=== PATIENT | female | born 1930 | race Caucasian/White ===

== ENCOUNTER 2020-03-19 05:26 | Inpatient (IN) | payer OTHER ==
[~2020-03-19] VITALS: Ht 165.1 cm; Wt 46.0 kg
--- NOTE | ~2020-03-19 | PROC ---
[address] [address] PROCEDURE REPORT Name: ELIZABETH GALLARDO Room: [address] IN M.R.#: [id number] Admission: 03/19/20 Attend Phys: Agustin Lord MD Discharge: 03/31/20 Date of : 11/15/[birth year] Report #: [id number] THIS REPORT FOR: cc: Gorge Fraga MD, James MD ~ [facility],Medical Records Staff For GI report, please see the Provation report in Perceptive 7 content. By: 1456Medical Records Staff [facility] /JESSE
[2020-03-19 05:28] VITALS: BP 141/67
[2020-03-19] MEDS ORDERED: CHILDREN'S ASPI81 M1 PO (05:35)
[2020-03-19] MEDS ORDERED: TYLENOL325 M1 PO (05:35)
[2020-03-19] MEDS ORDERED: DORYX MPC120 MG PO (05:36)
[2020-03-19] MEDS ORDERED: ELIQUIS5 MG PO (05:36)
[2020-03-19] MEDS ORDERED: FLOMAX0.4 MG PO (05:36)
[2020-03-19] MEDS ORDERED: LASIX 40 MG TAB40 MG PO (05:37)
[2020-03-19] MEDS ORDERED: MIRALAX119 GM PO (05:38)
[2020-03-19] MEDS ORDERED: SENNA PLUS TAB1 EACH PO (05:38)
[2020-03-19] MEDS ORDERED: LIDOCAINE PAIN1 EACH TOP (05:38)
[2020-03-19] MEDS ORDERED: LISINOPRIL20 MG PO (05:38)
[2020-03-19] MEDS ORDERED: PACERONE 200 M200 M1 PO (05:38)
[2020-03-19] MEDS ORDERED: TOPROL XL25 MG PO (05:39)
[2020-03-19] MEDS ORDERED: TRAMADOL 50 MG50 MG PO (05:39)
[2020-03-19 06:23] LABS: ABSOLUTE LYMPHOCYTES 0.6 thou/uL (0.8-5.3); ABSOLUTE MONOCYTES 0.5 thou/uL (0.0-1.2); ABSOLUTE NEUTROPHILS 5.5 thou/uL (1.6-8.1); BASOPHILS 0.3 %; EOSINOPHILS 0.7 %; HEMOGLOBIN 7.8 gm/dL (12.0-15.0); LYMPHOCYTES 9.1 %; MCH 29.7 pg (26.0-34.0); MCHC 32.7 g/dL (28.0-37.0); MCV 90.8 fL (80.0-100.0); MONOCYTES 7.2 %; NUCLEATED RBCS 0 /100WBC; PLATELET COUNT* 507 thou/uL (150-400); POLYS 82.7 %; RBC 2.64 mil/uL (4.20-5.00); RDW-CV 15.2 % (10.5-14.5); WBC 6.6 thou/uL (4.0-11.0)
[2020-03-19 06:37] LABS: INR 1.3; PROTIME 13.8 Seconds (9.20-11.50)
[2020-03-19 06:40] LABS: CALCIUM 8.3 mg/dL (8.5-10.1); CREATININE 0.9 mg/dL (0.6-1.3); POTASSIUM 3.7 mmol/L (3.5-5.1)
[2020-03-19 06:53] LABS: ALBUMIN 1.8 g/dL (3.4-5.0); MAGNESIUM 1.9 mg/dL (1.8-2.4); TOTAL BILIRUBIN 0.6 mg/dL (<0.1-1.0)
[2020-03-19 07:45] LABS: URINE BILIRUBIN NEGATIVE (Negative); URINE BLOOD NEGATIVE (Negative); URINE CLARITY CLEAR; URINE COLOR YELLOW; URINE GLUCOSE-RANDOM NEGATIVE (Negative); URINE KETONES NEGATIVE (Negative); URINE LEUKOCYTES-REFLEX NEGATIVE (Negative); URINE NITRITE-REFLEX NEGATIVE (Negative); URINE PROTEIN NEGATIVE (Negative); URINE SPECIFIC GRAVITY 1.025 (1.005-1.030); URINE UROBILINOGEN 0.2 E.U./dl (0.2-1.0)
--- NOTE | 2020-03-19 11:21 | EKG ---
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 : 1930 Requested By: Joya Harrington Order Number: [id number] MD: Kolby Mobley Measurements Intervals [place] Rate: 77 P: 31 NJ: 182 QRS: -58 QRSD: 158 T: 98 QT: 436 QTc: 494 Interpretive Statements Atrial-sensed ventricular-paced rhythm No further analysis attempted due to paced rhythm No previous ECG available for comparison Electronically Signed On 03-19-2020 11:21:01 DENTAL EQUIPMENT TECHNICIAN by Kolby Mobley [email or web address] <ELECTRONICALLY SIGNED> By: Kolby Mobley MD, [facility] 03/19/20 1121 0537 0537 Kolby Mobley MD, [facility] /EPI
[2020-03-19 12:16] VITALS: BP 131/49
--- NOTE | 2020-03-19 12:20 | NUR ---
PT GIVEN A LUNCH TRAY, THICKENED LIQUIDS.
[2020-03-19 15:54] LABS: CALCIUM 7.7 mg/dL (8.5-10.1); CREATININE 0.8 mg/dL (0.6-1.3); POTASSIUM 3.1 mmol/L (3.5-5.1)
[2020-03-19 17:14] VITALS: BP 185/54
[2020-03-19 18:40] VITALS: BP 176/62
[2020-03-19 19:50] VITALS: BP 169/58
--- NOTE | 2020-03-19 19:55 | NUR ---
PT LAYING QUIETLY IN BED WITH EYES CLOSED. AT BEDSIDE. O2 4L NC. BEAL DRAINING [place] YELLOW URINE. PT EDEMATOUS EXTREMITIES. TELE MONITOR PLACED ON PT. CALL LITE IN EASY REACH, BED ALARM ON FOR SAFETY. DENIES NEEDS AT THIS TIME.
--- NOTE | 2020-03-19 20:28 | NUR ---
I TOOK REPORT ON THE PATIENT AND SHE ARRIVED IN HER ROOM AT 1900. IS AT THE BEDSIDE AND SHE HAS BEEN AT [facility]ARCH FOR 3 WEEKS AND IGNITE FOR 1 WEEK. SHE HAS A BEAL IN PLACE AND ABOUT 3400 OUTPUT TODAY. SHE IS ON 4L NASAL CANNULA. SHE IS HARD OF HEARING. SHE HAS GENERALIZED EDEMA AND NEEDS REPOSITIONED. SHE WAS SETTLED AND IV PUMP WAS RESTARTED.
[2020-03-19 22:21] LABS: CALCIUM 7.7 mg/dL (8.5-10.1); CREATININE 0.7 mg/dL (0.6-1.3)
[2020-03-19 22:23] LABS: POTASSIUM 2.9 mmol/L (3.5-5.1)
[2020-03-19 22:24] LABS: MAGNESIUM 1.6 mg/dL (1.8-2.4); PHOSPHORUS* 2.7 mg/dL (2.5-4.9)
[2020-03-20] VITALS (7 sets, daily range): BP systolic 101–138; BP diastolic 32–68
[2020-03-20 04:49] LABS: ABSOLUTE EOSINOPHILS 0.1 thou/uL (0.0-0.7); ABSOLUTE LYMPHOCYTES 0.8 thou/uL (0.8-5.3); ABSOLUTE MONOCYTES 0.5 thou/uL (0.0-1.2); ABSOLUTE NEUTROPHILS 6.7 thou/uL (1.6-8.1); BASOPHILS 0.4 %; EOSINOPHILS 0.9 %; HEMATOCRIT 24.3 % (37.0-47.0); LYMPHOCYTES 9.9 %; MCHC 32.9 g/dL (28.0-37.0); MCV 91.1 fL (80.0-100.0); MONOCYTES 6.1 %; MPV 7.9 fl. (7.2-11.1); NUCLEATED RBCS 0 /100WBC; PLATELET COUNT* 495 thou/uL (150-400); POLYS 82.7 %; RBC 2.67 mil/uL (4.20-5.00); RDW-CV 15.2 % (10.5-14.5); WBC 8.1 thou/uL (4.0-11.0)
[2020-03-20 05:19] LABS: CALCIUM 7.7 mg/dL (8.5-10.1); CREATININE 0.7 mg/dL (0.6-1.3)
[2020-03-20 05:25] LABS: POTASSIUM 3.9 mmol/L (3.5-5.1)
--- NOTE | 2020-03-20 06:53 | NUR ---
PT DROWSY OVERNIGHT, AROUSING WITH CARES BUT BACK TO SLEEP. MORE AWAKE AND ALERT THIS MORNING, LOOKING AT THE TV, ANSWERING QUESTIONS WITH ONE AND TWO WORD ANSWERS. AO TO SELF AND PLACE. TAKING PILLS CRUSHED OVERNIGHT WITH APPLESAUCE AND HONEY THICK LIQUIDS. R LIMB ALERT D/T MASTECTOMY. LFA IV SL, ABX GIVEN ORDERED, RECEIVED LASIX THIS MORNING. TELE PACED RHYTHM. EDEMA REMAINS TO ARMS AND LEGS 2-3+. O2 4L NC SATS MID 90'S. BEAL DRAINING [place] AM[place] LITE YELLOW URINE OVERNIGHT. FOOT DROP BOOTS INTACT TO BLE. PT TURNED AND REPOSITIONED Q2 HOURS AND PRN FOR SKIN CARE AND COMFORT. BUTTOCK WOUND, TOMMIE CARE GIVEN AND BARRIER CREAM APPLIED-PHOTO IN CHART. STOOL NEEDED FOR OB, NO BM OVERNIGHT. AM LABS. NEURO, CARDIO AND PULM CONSULTS. BED ALARM ON FOR SAFET, CALL LITE IN EASY REACH.
--- NOTE | 2020-03-20 14:36 | EKG ---
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 : 1930 Requested By: Agustin Lord Order Number: [id number] Shira MD: Kolby Mobley Measurements Intervals [place] Rate: 65 P: 40 TN: 178 QRS: -59 QRSD: 169 T: 85 QT: 501 QTc: 521 Interpretive Statements Atrial-sensed ventricular-paced rhythm No further analysis attempted due to paced rhythm Compared to ECG 03/19/2020 05:37:15 No significant changes Electronically Signed On 03-20-2020 14:35:52 STREET LIGHT INSPECTOR by Kolby Mobley [email or web address] <ELECTRONICALLY SIGNED> By: Kolby Mobley MD, [facility] 03/20/20 1435 1030 1030 Kolby Mobley MD, [facility] /EPI
--- NOTE | 2020-03-20 14:57 | 2DMMODE ---
[place] [address] 2 D/M-MODE ECHOCARDIOGRAM Name: ELIZABETH GALLARDO Room: [address] ADM [place] Lm#: [id number] Admission: 03/19/20 Attend Phys: Agustin Lord, Discharge: Date of : [birth year]/15/[birth year] Date of Service: 03/20/20 1457 Report #: [id number] THIS REPORT FOR: cc: Gorge Fraga MD, James MD Blick,Kolby Still MD [facility] ~ APPROVED REPORT Study performed: 03/20/2020 10:14:34 EXAM: Limited 2D Echocardiogram Patient Location: In-Patient Room #: [facility] Status: routine BSA: 1.75 HR: 66 bpm BP: 123/51 mmHg Rhythm: NSR Other Information Study Quality: Good Indications Congestive Heart Failure Volumes Left Atrial Volume (Systole) LA ESV Index: 30.10 mL/m2 Left Ventricle The left ventricle is normal size. There is normal LV segmental wall motion. Mild concentric left ventricular hypertrophy. The left ventricular systolic function is normal. The left ventricular ejection fraction is within the normal range. LVEF is 50-55%. Right Ventricle The right ventricle is normal size. The right ventricular systolic function is normal. Pacemaker lead is present in the right ventricle. Atria The left atrium size is normal. The right atrium size is normal. Aortic Valve Mild [place] [address] 2 D/M-MODE ECHOCARDIOGRAM Name: ELIZABETH GALLARDO Room: [address] IN M.R.#: [id number] Admission: 03/19/20 Attend Phys: Agustin Lord, Discharge: Date of : [birth year]/15/[birth year] Date of Service: 03/20/20 1457 Report #: [id number] Mitral Valve There is mitral annular calcification. The mitral valve is normal in structure. Tricuspid Valve The tricuspid valve is normal in structure. Pulmonic Valve The pulmonary valve is normal in structure. Great Vessels The aortic root is normal in size. IVC is normal in size. Pericardium There is no pericardial effusion. Left pleural effusion. <Conclusion> Mild concentric left ventricular hypertrophy. LVEF is 50-55%. Mild aortic valve sclerosis. Left pleural effusion. <ELECTRONICALLY SIGNED> By: Kolby Mobley MD, FACC 03/20/201456 56 56 Kolby Mobley MD, FACC /INF
--- NOTE | 2020-03-20 15:34 | NUR ---
CM COMPLETED THE INITIAL ASSESSMENT TO DISCUSS D/C PLAN. PT WAS TESTING 2X CM ATTEMPTED TO SPEAK W/HER. PT SPOUSE PROVIDED SOCIAL HX. PT LIVES HOME W/SPOUSE AND WAS ACTIVE AND INDEPENDENT W/CARES PRIOR TO LAST HOSPITALIZATION. [facility] THIS ADMISSION. PT MAY HAVE HOME O2, NEED TO VERIFY THIS PT ISNT SURE IF HE WANTS PT TO RTRN TO SNF, HE BELIEVES SHE MAY NEED MORE INTENSIVE THERAPY. HE IS MORE INTERESTED IN ARU. PT HAS A SUPPORTIVE FAITH COMMUNITY AND FAMILY. PT HAS NO HX W/HH. CM TO CONT TO FOLLOW.
--- NOTE | 2020-03-20 15:34 | NUR ---
WOUND NURSE: PATIENT SEEN TO ADDRESS SKIN LESION ON SACRUM WHICH PRESENTS HEALING STAGE 2 PRESSURE INJURY EVIDENCED BY PINK EPITHELIAL TISSUE TO PERIWOUND AND PARTIALLY EPITHELIALIZED WOUND WITH BED WITH MOIST PINK TISSUE PRESENT. CLEANSED WITH SOAP AND WATER, RINSED WITH WATER, THEN PATTED DRY. APPLIED MARATHON LIQUID SKIN PROTECTANT TO THE WOUND BED AND LET DRY. PATIENT IS NOT TEACHEABE, NEEDS TO BE REPOSITIONED EVERY 2 HOURS TO PREVENT FURTHER BREAKDOWN.
--- NOTE | 2020-03-20 18:20 | NUR ---
PATIENT RESTING IN BED. PATIENT REPOSITIONED DOCUMENTED. PATIENT HAS BEEN SLEEPING MOST OF DAY BUT IS AROUSABLE. PATIENT WAS ABLE TO EAT SMALL AMOUNT OF MEALS WITH ASSISTANCE, NO SIGNS OF ASPIRATION. MEDICATIONS CRUSHED IN APPLESAUCE. PATIENT DOES MOAN AND COMPLAIN OF LEG AND BACK PAIN, TRAMADOL GIVEN X 1. AT BEDSIDE. BED ALARM ON.
[2020-03-20 20:40] LABS: CALCIUM 7.8 mg/dL (8.5-10.1); CREATININE 0.9 mg/dL (0.6-1.3); MAGNESIUM 1.9 mg/dL (1.8-2.4); POTASSIUM 3.7 mmol/L (3.5-5.1)
[2020-03-21] VITALS (7 sets, daily range): BP systolic 121–141; BP diastolic 45–59
[2020-03-21 04:12] LABS: ABSOLUTE EOSINOPHILS 0.1 thou/uL (0.0-0.7); ABSOLUTE LYMPHOCYTES 1.1 thou/uL (0.8-5.3); ABSOLUTE MONOCYTES 0.7 thou/uL (0.0-1.2); ABSOLUTE NEUTROPHILS 7.2 thou/uL (1.6-8.1); BASOPHILS 0.2 %; EOSINOPHILS 1.1 %; HEMATOCRIT 22.1 % (37.0-47.0); HEMOGLOBIN 7.2 gm/dL (12.0-15.0); LYMPHOCYTES 12.4 %; MCH 29.6 pg (26.0-34.0); MCHC 32.6 g/dL (28.0-37.0); MCV 90.6 fL (80.0-100.0); MONOCYTES 7.3 %; MPV 7.5 fl. (7.2-11.1); NUCLEATED RBCS 0 /100WBC; PLATELET COUNT* 484 thou/uL (150-400); RBC 2.44 mil/uL (4.20-5.00); RDW-CV 15.2 % (10.5-14.5); WBC 9.1 thou/uL (4.0-11.0)
[2020-03-21 04:53] LABS: ALBUMIN 2.1 g/dL (3.4-5.0); CALCIUM 7.9 mg/dL (8.5-10.1); POTASSIUM 3.8 mmol/L (3.5-5.1); TOTAL BILIRUBIN 0.8 mg/dL (<0.1-1.0); TOTAL PROTEIN 5.3 g/dL (6.4-8.2)
--- NOTE | 2020-03-21 05:23 | NUR ---
PT SLEPT OFF AND ON OVERNIGHT.MOANS OCCASIONALLY AND ABLE TO VERBALIZE WHAT HURTS, PO PAIN MED GIVEN AND PT REPOSITIONED FOR COMFORT. BEAL DRAINING LITE YELLOW URINE WITHOUT DIFFICULTY. O2 3L NC. TELE MONITOR VPACED RHYTHM. AM LABS. TAKING MEDS CRUSHED IN PUDDING WITHOUT DIFFICULTY. HONEY THICK LIQUIDS. R LIMB ALERT. LFA SL IV, ALBUMIN AND IV ABX GIVEN ORDERED. MRSA NASAL SWAB SENT TO LAB. EDEMA TO EXTREMITIES. PT TURNED AND REPOSITIONED Q2 HOURS AND PRN FOR SKIN CARE AND COMFORT. CALL LITE IN EASY REACH,BED ALARM ON FOR SAFETY. NO CHANGE IN MENTAL STATUS THIS SHIFT, AO TO SELF AND SITUATION. FULL CODE.
--- NOTE | 2020-03-21 16:44 | NUR ---
PT REMAINED ALERT AND TIMES DURING SHIFT. PT AROUSABLE TO VOICE. AT BEDSIDE AND ASKING QUESTIONS FREQUENTLY. PT GOT UP TO CHAIR BUT STATE STARTED TO FEEL FAINT AND WANTED BACK TO BED. FLAVIA LIFTED BACK TO BED. Q2 TURNS COMPLETED. HOURLY ROUNDING COMPLETED. HEART MONITORED.
[2020-03-22 04:00] VITALS: BP 130/52
[2020-03-22 08:00] VITALS: BP 150/54
--- NOTE | 2020-03-22 08:17 | NUR ---
PATIENT HAS BEEN VERY RESTLESS AT TIMES AND SLEPT OFF AND ON DURING THE NIGHT. VSS ON 3L 02 VIA NASAL CANNULA. MEDICATIONS CRUSHED AND GIVEN ORDERED AND CHARTED. PATIENT VERY CONFUSED MOST OF THE TIME. BEAL TO DEPENDENT DRAINAGE WITH YELLOW URINE OUTPUT. IV N LEFT FOREARM-SL. PATIENT HAS REMAINED BEDREST DURING THE NIGHT. PATIENT IS V-PACED ON ACADEMIC AFFAIRS SPECIALIST. FALL PRECAUTIONS IN PLACE AND HOURLY ROUNDS MADE. WILL CONTINUE WITH PLAN OF CARE AND NURSING TO MONITOR.
[2020-03-22 09:46] LABS: ABSOLUTE EOSINOPHILS 0.1 thou/uL (0.0-0.7); ABSOLUTE LYMPHOCYTES 1.3 thou/uL (0.8-5.3); ABSOLUTE MONOCYTES 0.7 thou/uL (0.0-1.2); ABSOLUTE NEUTROPHILS 8.3 thou/uL (1.6-8.1); BASOPHILS 0.3 %; EOSINOPHILS 0.7 %; HEMATOCRIT 25.9 % (37.0-47.0); HEMOGLOBIN 8.4 gm/dL (12.0-15.0); LYMPHOCYTES 12.5 %; MCH 29.8 pg (26.0-34.0); MCHC 32.6 g/dL (28.0-37.0); MCV 91.4 fL (80.0-100.0); MPV 7.7 fl. (7.2-11.1); NUCLEATED RBCS 0 /100WBC; PLATELET COUNT* 541 thou/uL (150-400); POLYS 79.5 %; RBC 2.83 mil/uL (4.20-5.00); RDW-CV 15.4 % (10.5-14.5); WBC 10.4 thou/uL (4.0-11.0)
[2020-03-22 12:05] VITALS: BP 108/57
[2020-03-22 16:27] VITALS: BP 143/46
--- NOTE | 2020-03-22 19:06 | CON ---
[address] [address] CONSULTATION Name: ELIZABETH GALLARDO Room: [address] IN M.R.#: [id number] Admission: 03/19/20 Attend Phys: Agustin Lord MD Discharge: Date of : 11/15/[birth year] Report #: [id number] THIS REPORT FOR: cc: Gorge Fraga MD, James MD ~ Chato Martinez MD DATE OF SERVICE: 03/20/2020 CONSULT REQUESTED BY: Agustin Lord MD INDICATION FOR CONSULTATION: Acute hypoxemic respiratory failure/mediastinal mass. HISTORY OF PRESENT ILLNESS: This is an 89 years old female with past medical history is as mentioned below. The patient was recently discharged from another facility and in fact subsequently was at a long-term care facility as well after having COVID-19 infection. The patient does have a previous history of pacemaker placement and has previously been followed by Dr. Mobley. She has had atrial arrhythmias and she is on Eliquis long-term. At this time, the patient is admitted here with worsening shortness of breath. There is also worsening swelling of lower extremities and the patient is becoming more and more lethargic. She did not report any significant cough or sputum production. The patient currently is on honey thick liquids. Since admission, the patient has had a CTA chest performed, which does show a mediastinal mass on the right side, which could possibly be an extension from the neck. There are also fairly significant bilateral pleural effusions consistent with fluid overload and there are basilar infiltrates suspicious of aspiration. In addition, the patient had a CT head performed, which does appear to be consistent with a stroke with infarction in the posterior MCA territory and can also be a tiny petechial hemorrhage and some dry rash. Since admission, the patient has been on Lasix. She in fact appears to be diuresing well with Lasix. The patient is very lethargic and is therefore not able to provide a detailed history. PAST MEDICAL HISTORY: Recent recovery from COVID-19 infection, coronary artery disease with congestive heart failure, reported to have had systolic congestive heart failure with cardiomyopathy in the past. The new echo just performed now shows a low normal left ventricular ejection fraction of around 55%. The patient does, however, clinically still appear to be in congestive heart failure. Also, history of atrial arrhythmias, on anticoagulation custodial with Eliquis, also has been on amiodarone. It is [place] [address] CONSULTATION Name: ELIZABETH GALLARDO Room: [address]#: [id number] Admission: 03/19/20 Attend Phys: Agustin Lord MD Discharge: Date of : [birth year]/15[birth year] Report #: [id number] fibrillation; however, details of her arrhythmia is not available to me at this time. Throat surgery, details not available. Right-sided mastectomy. Possible history of dementia. SOCIAL HISTORY: There is no known history of smoking, ethanol abuse, or drug abuse. [facility]. HOME MEDICATIONS: List in [facility] also reviewed, also see discussed above. FAMILY HISTORY: No pertinent family history. PHYSICAL EXAMINATION: GENERAL: The patient was very lethargic. I was able to arouse her. She did answer simple commands, but not orientation questions. VITAL SIGNS: She has nasal cannula in place at 4 liters, she is saturating at 96%, has a pulse of 65 and a blood pressure of 130/48, respiratory rate is 16. She had a temperature of 37.1. HEENT: Head is normocephalic and atraumatic. Pupils are equal and reactive. There is no throat erythema. Her mucous membranes are moist. NECK: Does not show raised JVP, asymmetry, mass or lymph nodes. CHEST: Symmetrical expansion on inspection and palpation. On auscultation, breath sounds are markedly decreased at bilateral lung bases. HEART: Regular. There is no murmur. ABDOMEN: Soft and nontender. EXTREMITIES: Lower extremities do show 1+ edema bilaterally, but there is some wrinkling present, which is consistent with a recent reduction in edema. SKIN: Dry and intact. NEUROLOGICAL: She does move all extremities. She was not able to cooperate with a detailed neurological exam. The patient's CTA chest/head and chest x-ray are reviewed, see further discussion regarding them as above. LABORATORY DATA: The patient's lab work in [facility] also reviewed. Nasal swab for MRSA is pending. ASSESSMENT AND PLAN: 1. Mediastinal mass. This is seen in the right side of the mediastinum. It is causing some tracheal deviation. It is likely that this is an extension from the neck. 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 The left lobe of the thyroid may be too high to be visualized or [address] [address] CONSULTATION Name: ELIZABETH GALLARDO Room: [address] IN M.R.#: [id number] Admission: 03/19/20 Attend Phys: Agustin Lord MD Discharge: Date of : 11/15/[birth year] Report #: [id number] could have been previously surgically removed. At this time, I suggest that we go ahead and obtain a neck soft tissue ultrasound. If there are no obvious findings on this ultrasound to act otherwise, then I would favor stabilizing the patient and addressing other issues first and then later on if we are able to achieve a euvolemic state and a few days later, we will consider obtaining a CT neck and chest with IV contrast again to assess further. 2. Congestive heart failure/fluid overload/pleural effusion/protein-calorie malnutrition. I agree with continuing diuresis. I added potassium scheduled to avoid a drop in potassium. Recommend watching electrolytes and adjusting accordingly down the line. Cutting back on the dose of Lasix. Adding Aldactone and taking her off potassium can be a later consideration. I do agree with giving her albumin today. I suggest considering giving her more albumin tomorrow. 3. Pulmonary infiltrates/aspiration. It does appear to me that there are at least some basilar infiltrates secondary to aspiration. The patient despite honey-thick liquid diet, is likely having ongoing aspiration. I recommend only feeding her if she is fully awake and is able to fully sit up. I would also recommend obtaining a speech consult. If the patient is fully awake and able to sit up, then may consider also obtaining a video swallow to assess further. Meanwhile, she is on Zosyn. I agree with continuing Zosyn. There is an order for nasal swab for MRSA on the record already. I requested the patient's RN to proceed with sending this as well. 4. Stroke. A CT head is consistent with a stroke. I would defer management to the Neurology service. 5. Consideration for thoracentesis/anticoagulation. She has fairly large pleural effusion, otherwise I would have recommended a thoracentesis; however, considering that she is on Eliquis, I favor holding off unless the patient does not continue to respond to diuretics. So far, she is responding to diuretics and I would recommend continuing the same with albumin as well as above. 6. Recent COVID-19 infection. 7. Past medical history of atrial arrhythmias, possibly atrial fibrillation, noted to be on anticoagulation/status post-pacemaker placement. 8. History of amiodarone therapy. 9. History of mastectomy. Thanks for this consultation. <ELECTRONICALLY SIGNED> By: Chato Martinez MD 03/22/20 [id number] Martinez MD /nt
[2020-03-22 20:30] VITALS: BP 114/46
[2020-03-23 04:00] VITALS: BP 152/52
--- NOTE | 2020-03-23 06:43 | NUR ---
ASSUMED CARE OF PATIENT AT 1930. PATIENT MOANING BUT DOES NOT RESPOND WHEN ASKED WHAT IS WRONG OR IF PATIENT IS IN PAIN. ADMINISTERED PRN TRAMADOL. PATIENT CALM/SLEEPING AT REASSESSMENT FOR PAIN MEDICATION. ASSESSMENT CHARTED. PATIENT SLOWLY PROGRESSING TOWARDS CARE PLAN GOALS.
[2020-03-23 08:00] VITALS: BP 141/53
[2020-03-23 09:35] LABS: CALCIUM 8.4 mg/dL (8.5-10.1); CREATININE 0.7 mg/dL (0.6-1.3); POTASSIUM 3.7 mmol/L (3.5-5.1)
--- NOTE | 2020-03-23 10:14 | NUR ---
PT FOUND AMS FROM BASELINE PER PHYSICIAN AND PT. PTOX3,LETHARGIC,LEFT PUPIL FOUND MORE SLUGGISH THAN RIGHT. VSS. 98.9,153/54,66,95% ON 2L NC. ORDERS OBTAINED FOR ABG,CT SCAN.WILL FOLLOW UP.
[2020-03-23 10:27] LABS: ALBUMIN 2.1 g/dL (3.4-5.0); TOTAL BILIRUBIN 0.8 mg/dL (<0.1-1.0); TOTAL PROTEIN 5.9 g/dL (6.4-8.2)
[2020-03-23 12:07] VITALS: BP 159/59
[2020-03-23 12:07] LABS: BE 10.6 mmol/L (-2 to +3); PO2 120.9 mmHg (75.0-100.0); pH 7.476 (7.340-7.450)
[2020-03-23 14:00] VITALS: BP 146/53
--- NOTE | 2020-03-23 14:32 | NUR ---
CM INFORMED DURING PRIME ROUNDING OF THE PLAN OF CARE FOR THE PT. INPT ARU CONSULT PLACED. PT/OT/ST EVALS PENDING. MT PHYSICIAN PT HAD MENTAL STAUS CHANGE AND D/C TO INPT ARU ON-HOLD AT THIS TIME. CM WILL REMAIN AVAILABLE TO ASSIST AND FOLLOW NEEDED.
--- NOTE | 2020-03-23 19:58 | NUR ---
PT RESTING AT THIS TIME.NO S/S OF PAIN OR DISCOMFORT.PT REMAINS LETHARGIC.REPORT GIVEN TO NIGHT NURSE INCLUDING HOLDING OF ORAL MEDICATIONS,ASSESSMENT IV ACCESS AND RIGHT LIMB ALERT. WOULD RECOMMEND MORE APPROPRIATE LINE ACCESS FOR INFUSIONS AND MEDICATIONS. NOTHING FURTHER AT THIS TIME.CLWR.WCTM
[2020-03-23 20:00] VITALS: BP 138/50
[2020-03-24] VITALS: BP 132/83; BP 143/51
[2020-03-24 04:00] VITALS: BP 126/83
[2020-03-24 04:14] LABS: ABSOLUTE LYMPHOCYTES 1.1 thou/uL (0.8-5.3); ABSOLUTE MONOCYTES 0.6 thou/uL (0.0-1.2); ABSOLUTE NEUTROPHILS 7.7 thou/uL (1.6-8.1); BASOPHILS 0.2 %; EOSINOPHILS 0.4 %; HEMATOCRIT 25.4 % (37.0-47.0); HEMOGLOBIN 8.3 gm/dL (12.0-15.0); MCH 29.4 pg (26.0-34.0); MCHC 32.4 g/dL (28.0-37.0); MCV 90.7 fL (80.0-100.0); MONOCYTES 5.9 %; MPV 7.7 fl. (7.2-11.1); NUCLEATED RBCS 0 /100WBC; PLATELET COUNT* 479 thou/uL (150-400); POLYS 81.5 %; RBC 2.81 mil/uL (4.20-5.00); RDW-CV 15.4 % (10.5-14.5); WBC 9.4 thou/uL (4.0-11.0)
[2020-03-24 04:23] LABS: ALBUMIN 1.9 g/dL (3.4-5.0); CALCIUM 8.5 mg/dL (8.5-10.1); CREATININE 0.7 mg/dL (0.6-1.3); POTASSIUM 3.4 mmol/L (3.5-5.1); TOTAL BILIRUBIN 0.7 mg/dL (<0.1-1.0); TOTAL PROTEIN 5.4 g/dL (6.4-8.2)
--- NOTE | 2020-03-24 05:41 | NUR ---
ASSUMED PT CARE AT APPROX 1930. PT IS LETHARGIC BUT IS AROUSABLE TO VERBAL STIMULI, PT IS ORIENTED X3, FORGETFUL, ABLE TO ANSWER SIMPLE QUESTIONS AND IS ABLE TO FOLLOW SIMPLE COMMANDS. PT IS NOT IN RESPIRATORY DISTRESS, NO DESATURATIONS NOTED ON 2L OF O2/NC. PAIN MEDICINE GIVEN FOR GENERALIZED PAIN/BACK PAIN WITH RELIEF. PT IS VENTRICULAR PACED ON THE PRODUCT SPECIALIST. POSITION CHANGES DONE Q2H AND NEEDED FOR COMFORT. PT IS CLOSELY MONITORED. ASPIRATION PRECAUTIONS IN PLACE. HIGH FALL PRECAUTIONS IN PLACE.
[2020-03-24 08:00] VITALS: BP 149/60
[2020-03-24 11:30] VITALS: BP 145/68
--- NOTE | 2020-03-24 14:42 | 2DMMODE ---
[place] [address] 2 D/M-MODE ECHOCARDIOGRAM Name: ELIZABETH GALLARDO Room: [address] IN [facility]#: [id number] Admission: 03/19/20 Attend Phys: Agustin Lord, Discharge: Date of : [birth year]15[birth year] Date of Service: 03/24/20 1442 Report #: [id number] THIS REPORT FOR: cc: Gorge Fraga MD, James MD [place],Ruben Navarro MD [facility] ~ APPROVED REPORT Study performed: 03/24/2020 09:55:35 EXAM: Limited 2D, Doppler, and color-flow Echocardiogram Patient Location: In-Patient Room #: 224 Status: routine BSA: 1.56 HR: 70 bpm BP: 121/57 mmHg Rhythm: NSR Other Information Study Quality: Good Indications Congestive Heart Failure CVA/TIA Dyspnea Echo Enhancing Agent Indication: Rule out Shunt Agent(s) / Amount(s) Used: Agitated Saline 10 cc Volumes Left Atrial Volume (Systole) LA ESV Index: 31.60 mL/m2 Tricuspid Valve RAP Estimate: 5.00 mmHg TR Peak Gr.: 29.18 mmHg RVSP: 34.00 mmHg PA Pressure: 34.00 mmHg Left Ventricle The left ventricle is normal size. Mild concentric left ventricular hypertrophy. The left ventricular systolic function is normal. LVEF is 50-55%. [place] [address] 2 D/M-MODE ECHOCARDIOGRAM Name: ELIZABETH GALLARDO Room: [address] IN .R.#: [id number] Admission: 03/19/20 Attend Phys: Agustin Lord, Discharge: Date of : 11/15/[birth year] Date of Service: 03/24/20 1442 Report #: [id number] Right Ventricle The right ventricle is normal size. The right ventricular systolic function is normal. Pacemaker lead is present in the right ventricle. Atria The left atrium size is normal. The interatrial septum is intact with no evidence for an atrial septal defect. The right atrium size is normal. Aortic Valve Mild aortic valve sclerosis. Mild aortic regurgitation. Mitral Valve There is mitral annular calcification. Mild mitral regurgitation. Tricuspid Valve Mild tricuspid regurgitation. Mild pulmonary hypertension. Pulmonic Valve Mild pulmonic regurgitation. Great Vessels The aortic root is normal in size. IVC is normal in size and collapses >50% with inspiration. Pericardium There is no pericardial effusion. Left pleural effusion. <Conclusion> The left ventricle is normal size. Mild concentric left ventricular hypertrophy. The left ventricular systolic function is normal. LVEF is 50-55%. Mild aortic valve sclerosis. Mild aortic regurgitation. Mild mitral regurgitation. Mild tricuspid regurgitation. Mild pulmonary hypertension. The interatrial septum is intact with no evidence for an [place] [address] 2 D/M-MODE ECHOCARDIOGRAM Name: ELIZABETH GALLARDO Yovana Room: [address] IN M.R.#: [id number] Admission: 03/19/20 Attend Phys: Agustin Lord, Discharge: Date of : 11/15/[birth year] Date of Service: 03/24/20 1442 Report #: [id number] IVC is normal in size and collapses >50% with inspiration. Left pleural effusion. <ELECTRONICALLY SIGNED> By: Ruben Chaney MD, FACC 03/24/202 41 41 Ruben Chaney MD, FACC /INF
--- NOTE | 2020-03-24 15:53 | NUR ---
CM FAXED UPDATED CLINICALS TO FRANCHESKA AT [facility] AND ASKED HER NOT TO RUN INSURANCE AUTH AT THIS TIME PT'S SPOUSE IS STILL HOPING FOR ARU. MILAGROS ALSO FAXED REFERRAL TO PAOLO AT [facility] AND ASKED HER NOT TO RUN INSUR AUTH UNTIL FURTHER NOTICE. MILAGROS NEEDS TO F/U WITH ANDRE TO SEE IF WHAT SNF HE WOULD PREFER IF PT IS NOT APPROPRIATE FOR ARU.
[2020-03-24 17:03] VITALS: BP 114/57
[2020-03-24 20:00] VITALS: BP 137/66
--- NOTE | 2020-03-24 20:52 | NUR ---
Pt remained alert and oriented x4 for entire shift though obviously forgetful at times. Vital signs stable. Pt using few word sentences to express needs. Pt will answer yes and no questions appropriately. Pt turned Q2 hours. Pt sipping on nectar thick liquids and requesting orange juice specifically. Pt at bedside this afternoon. Pt sleepy but arouses to verbal stimuli. Bed in low position, bed alarm on, call light within reach.
[2020-03-25] VITALS: BP 93/51
[2020-03-25 00:53] LABS: ABSOLUTE LYMPHOCYTES 0.9 thou/uL (0.8-5.3); ABSOLUTE MONOCYTES 0.3 thou/uL (0.0-1.2); ABSOLUTE NEUTROPHILS 5.8 thou/uL (1.6-8.1); BASOPHILS 0.2 %; HEMOGLOBIN 8.2 gm/dL (12.0-15.0); LYMPHOCYTES 12.5 %; MCH 29.4 pg (26.0-34.0); MCHC 32.6 g/dL (28.0-37.0); MCV 90.2 fL (80.0-100.0); MONOCYTES 4.1 %; MPV 7.5 fl. (7.2-11.1); NUCLEATED RBCS 0 /100WBC; PLATELET COUNT* 432 thou/uL (150-400); POLYS 83.2 %; RBC 2.78 mil/uL (4.20-5.00); RDW-CV 15.4 % (10.5-14.5)
[2020-03-25 01:03] LABS: INR 1.2; PROTIME 12.5 Seconds (9.20-11.50)
[2020-03-25 01:06] LABS: ALBUMIN 1.9 g/dL (3.4-5.0); CALCIUM 7.9 mg/dL (8.5-10.1); CREATININE 0.7 mg/dL (0.6-1.3); MAGNESIUM 2.3 mg/dL (1.8-2.4); POTASSIUM 4.1 mmol/L (3.5-5.1); TOTAL BILIRUBIN 0.5 mg/dL (<0.1-1.0); TOTAL PROTEIN 5.4 g/dL (6.4-8.2)
[2020-03-25 04:00] VITALS: BP 122/54
--- NOTE | 2020-03-25 07:11 | NUR ---
IN REPORT DAY SHIFT HAD REPORTED PT DIDNT GET THEIR 40KCL IN 250 D5W UNTIL LATE R/T NO IV ACCESS. FLUSHED UPON BEGINNING OF SHIFT ASSESSMENT. [facility] DAILY LABS BEFORE HANGING THE 2030 BAG. NOTIFIED CLIPPING MARKER DR OF THE [facility] IVPB ORDER WELL UPDATED LABS. OK NOT TO GIVE THE BAG THIS SHIFT.WILL NOTIFY NEXT SHIFT.
[2020-03-25 08:00] VITALS: BP 146/61
[2020-03-25 11:45] VITALS: BP 155/57
--- NOTE | 2020-03-25 12:32 | EEG ---
[address] [address] EEG STUDY REPORT Name: ELIZABETH GALLARDO Room: [address] IN M.R.#: [id number] Admission: 03/19/20 Attend Phys: Agsutin Lord MD Discharge: Date of : 11/15/[birth year] Report #: [id number] THIS REPORT FOR: cc: Gorge Fraga MD, James MD ~ Heron Leslie MD DATE OF SERVICE: 03/20/2020 ELECTROENCEPHALOGRAM This patient is being evaluated for altered mental status. EEG was done by placing the electrode by standard 10-20 system of electrode placement. Both referential and sequential montages were used for recording. Background activity in this patient's EEG is about 8 Hz and 30 microvolt. It is intermixed with theta range slowing on both sides. Photic stimulation is unremarkable. The patient went to sleep and that is associated with bilateral slowing and vertex sharp waves. Throughout the record, no active epileptiform activity was noticed. IMPRESSION: This is a poorly formed EEG because it is intermixed with theta range slowing on both sides. That is a nonspecific abnormality, which can occur with encephalopathy, effect of psychotropic medication, dementia, etc. Clinical correlation is recommended. <ELECTRONICALLY SIGNED> By: Heron Leslie MD 03/25/20 1232 1229 [id number] Leslie MD /leonides
--- NOTE | 2020-03-25 12:32 | CON ---
[address] [address] CONSULTATION Name: ELIZABETH GALLARDO Room: [address] ADM IN M.R.#: [id number] Admission: 03/19/20 Attend Phys: Agustin Lord MD Discharge: Date of : 11/15/30 Report #: [id number] THIS REPORT FOR: cc: Gorge Fraga MD, James MD ~ Heron Leslie MD DATE OF SERVICE: 03/19/2020 HISTORY OF PRESENT ILLNESS: This is an 89-year-old female patient who was evaluated by me for altered mental status. The patient does not provide any reliable history. I talked to the in detail and I reviewed the notes in the chart. This patient was apparently COVID positive at one time, but subsequently became COVID negative. She was admitted to an outside hospital and subsequently she was transferred to what looks like a senior care facility. Presently, she has numerous problems. She has swelling of all 4 extremities. There is diffuse swelling. In fact, she has edema of all 4 extremities. She has shortness of breath. She by record has a history of cardiomyopathy, atrial fibrillation and she is on chronic anticoagulation. From the record also, it looks like she has a pacemaker. REVIEW OF SYSTEMS: A 14-point review of system was carried out. I am not sure what her premorbid status was in this patient or from the , it looks like she had some impairment, but after the COVID, she really went down, but she obviously has other problems like cardiomyopathy and atrial fibrillation. She does have a history of mastectomy and she does have a history of cognitive decline, which appear to be significant. I carried out 14-point review of systems, but this was the relevant 14-point review of system. She apparently has some anemia. She has some pleural effusion as I understand. PAST MEDICAL HISTORY: Positive for COVID infection. FAMILY HISTORY: Unremarkable. SOCIAL HISTORY: She is and I talked to the and he provided most of the history. PHYSICAL EXAMINATION: Limited. She is able to follow simple commands, but her speech is very poor. It is difficult for me to understand. Carrying out further examination is difficult in this patient as far as cognitive evaluation is concerned. She does not know the date or the hospital she is in, but looks like it is fluctuating because previously it looks like at one time, she was oriented. On cranial nerve examination, the best I can tell, [place] [address] CONSULTATION Name: ELIZABETH GALLARDO Room: [address] IN [facility]#: [id number] Admission: 03/19/20 Attend Phys: Agustin Lord MD Discharge: Date of : 11/15/30 Report #: [id number] focality. She is able to move all 4 extremities in spite of her massive edema. It becomes difficult to tell how much is the motor weakness and how much is edema causing restriction of her movements. Position sense was attempted, but was not possible to carry out. Similarly difficult to tell reflexes with such an extensive edema. Blood pressure is 131/49, respirations 26, pulse is 65, temperature is 98.3. LABORATORY DATA: She is anemic with a hemoglobin of 7.8. She did not have any imaging study of the brain here. 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 IMPRESSION: This patient has numerous medical problems. It is possible that part of the neurological symptoms are COVID related. Multiple patients of COVID have been seen with cognitive decline after acute illness and that is presumed to be long-term antibodies which have been present in many of those patients. I will suggest doing a CT scan of the head and EEG in this patient, but I think the main emphasis should be to evaluate the systemic workup and see what can be done in that regard. I discussed all of it with the in detail and I reviewed the patient's record and we will review the CT and EEG whenever it is done. <ELECTRONICALLY SIGNED> By: Heron Leslie MD 03/25/20 1232 1353 24Heron Leslie MD /nt
--- NOTE | 2020-03-25 15:09 | NUR ---
CM INFORMED DURING PRIME ROUNDING OF THE PLAN OF CARE FOR THE PT. INPT ARU CONSULT PENDING VS SNF. PLAN FOR PT TO HAVE THORACENTESIS TODAY. GI CONSULTED FOR PEG PLACEMENT. HOWEVER PT NOW DECLINING PEG PER PHYSICIAN CONSULT NOTE. PT REMAINS ON IV ABT'S. CM WILL REMAIN AVAILABLE TO ASSIST AND FOLLOW NEEDED.
[2020-03-25 15:33] VITALS: BP 120/57
[2020-03-25 17:09] LABS: CLARITY CLOUDY; SOURCE THORACENTESIS; TOTAL VOLUME 460 ml
[2020-03-25 17:28] LABS: BF RBC <1000 /mm3; TOTAL CELL COUNT 299 /mm3
--- NOTE | 2020-03-25 18:00 | NUR ---
PT HAS RESTED T/O DAY. C/O PAIN TO BOTTOM,CONSTANTLY REPEATS HELP. OX3,DROWSY. PT WAS ABLE TO ASSIST OT WITH THERAPY AND ABLE TO GET TO BEDSIDE CHAIR. CXR SHOWED EFFUSIONS. THORACENTESIS DONE AT BEDSIDE WITH 460 REMOVED. PT TOLERATED WELL.PT DOES REQUEST FOR BACKRUB R/T PAIN. VOLTAREN ORDER OBTAINED TID.PT AND HAVE CONSENTED TO PEG TUBE PLACEMENT FOR NOURISHMENT. TUBE TO BE PLACED TOMORROW AM. NOTHING FURTHER.TM
[2020-03-25 18:04] LABS: BF LYMPHOCYTES 48 %; BF MONOCYTES 44 %; BF POLYS 8 %
[2020-03-25 20:00] VITALS: BP 124/47
[2020-03-26] VITALS: BP 140/95
[2020-03-26 04:39] LABS: ABSOLUTE MONOCYTES 0.6 thou/uL (0.0-1.2); ABSOLUTE NEUTROPHILS 7.7 thou/uL (1.6-8.1); BASOPHILS 0.1 %; HEMATOCRIT 26.9 % (37.0-47.0); HEMOGLOBIN 8.7 gm/dL (12.0-15.0); MCH 29.2 pg (26.0-34.0); MCHC 32.4 g/dL (28.0-37.0); MCV 90.1 fL (80.0-100.0); MONOCYTES 6.5 %; MPV 7.7 fl. (7.2-11.1); NUCLEATED RBCS 0 /100WBC; PLATELET COUNT* 425 thou/uL (150-400); POLYS 82.4 %; RBC 2.98 mil/uL (4.20-5.00); RDW-CV 15.5 % (10.5-14.5); WBC 9.3 thou/uL (4.0-11.0)
[2020-03-26 04:44] VITALS: BP 120/69
[2020-03-26 04:59] LABS: CALCIUM 8.1 mg/dL (8.5-10.1); CREATININE 0.6 mg/dL (0.6-1.3); MAGNESIUM 2.2 mg/dL (1.8-2.4); POTASSIUM 4.1 mmol/L (3.5-5.1)
[2020-03-26 08:00] VITALS: BP 143/59
--- NOTE | 2020-03-26 09:31 | NUR ---
WOUND NURSE: PATIENT SEEN FOR FOLLOW UP ASSESSMENT PERTAINING TO SACRAL PRESSURE INJURY. CURRENTLY MEASURES 0.3 X 0.3 X 0.1 CM. THERE IS NO ACTIVE DRAINAGE PRESENT. THERE IS NO PERIWOUND REDNESS, WARMTH, OR INDURATION. CLEANSED WITH SOAP AND WATER, RINSED, THEN PATTED DRY. APPLIED SKIN PREP TO PERIWOUND TISSUE AND LET DRY. APPLIED EXUDERM LP CUT TO FIT TO WOUND, SECURED WITH SURESITE TRANSPARENT DRESSING. PLAN TO CHANGE EVERY 5 TO 7 DAYS AND PRN. PATIENT IS ON A TURN SCHEDULE. PATIENT COMPLAINING OF PAIN AT [facility]IL[facility], BUT IS NPO. NURSE MARY STATED SHE WILL DISCUSS WITH AND SEE IF PATIENT CAN TRY LIDOCAINE PATCH FOR PAIN. PATIENT WAS TURNED TO HER RIGHT SIDE AND SHE SAID PAIN HAD IMPROVED WITH THE POSITION CHANGE.
--- NOTE | 2020-03-26 10:30 | NUR ---
PT TAKEN TO PACU AT THIS TIME.
--- NOTE | 2020-03-26 11:34 | NUR ---
CM INFORMED DURING PRIME ROUNDING OF THE PLAN OF CARE FOR THE PT. PLAN FOR PT TO HAVE EGD AND PEG PLACEMENT TODAY PT IS NOW IN AGREEMENT. ARU CONSULT PENDING VS SNF PENDING ARU'S DECISION. PT/OT TO F/U WITH PT TO DETERMINE PT'S ABILITY TO TOLERATE 3 HRS OF THERAPIES. PER PHYSICIAN PT SHOULD BE STABLE FOR TRANSFER TO ARU TODAY IF ACCEPTED. CM WILL REMAIN AVAILABLE TO ASSIST AND FOLLOW NEEDED.
--- NOTE | 2020-03-26 13:33 | NUR ---
Nutrition: TF RECS JEVITY 1.5 @ CONTINUOUS GOAL RATE 45mL/HR. OR IF BOLUS FEEDS: 5 CANS PER DAY. WATER FLUSHES: 90mL BEFORE AND 90mL AFTER EACH BOLUS FEED (900mL PER DAY TOTAL). SEE RD REASSESSMENT FORM FOR DETAILS.
[2020-03-26 20:30] VITALS: BP 150/53
--- NOTE | 2020-03-26 20:31 | NUR ---
PT RETURNED FROM PROCEDURE AT 1555.PT C/O PAIN TO BACK. VSS.AV PACE ON MONITOR.PT TO BEGIN TUBE FEEING IN AM AT 30/HR WITH 300 CC FLUSHES. RE EDUCATED ON DIET AND IMPORTANCE OF TRYING NON PHAMACEUTICAL INTERVENTIONS OF PAIN FIRST.PT WAS DUE TO GO TO REHAB POSSIBLY AFTER PROCEDURE. UNABLE TO DETERMINE AT THIS TIME WHAT IS NEXT COURSE OF ACTION WITH REHAB.NOTHIN FURTHER AT THIS TIME. CLWR.WCTM
[2020-03-27] VITALS (7 sets, daily range): BP systolic 140–165; BP diastolic 57–65
[2020-03-27] MEDS ORDERED: LIPITOR40 MG PO (12:09)
[2020-03-27 12:19] LABS: CHOLESTEROL 117 mg/dL (<200); HDL CHOLESTEROL 45 mg/dL (>40); LDL CHOLESTEROL 53 mg/dL (<100); TC:HDL 2.6 Ratio (Not establshd); TRIGLYCERIDE 96 mg/dL (<150); VLDL 19 mg/dL (<40)
[2020-03-27 12:20] LABS: SERUM ASSESSMENT Clear
--- NOTE | 2020-03-27 13:25 | NUR ---
Nutrition: follow up note. Pt would benefit from nocturnal feed. Hoping pt will eat more po, but is variable right now R/T mentation. RECOMMEND JEVITY 1.5 @ GOAL RATE 60mL X12 HOURS OVER NIGHT. ENCOURAGE GOOD MEAL INTAKE DURING DAYS. See RD Reassessment Form for details.
--- NOTE | 2020-03-27 13:34 | NUR ---
CM INFORMED DURING PRIME ROUNDING OF THE PLAN OF CARE FOR THE PT. PEG PLACED YESTERDAY. PLAN FOR PT TO D/C TO ARU PENDING ACCEPTANCE AND PT/OT F/U TO DETERMINE IF PT IS ABLE TO TOLERATE 3 HRS OF THERAPIES. CM WILL REMAIN AVAILABLE TO ASSIST AND FOLLOW NEEDED.
[2020-03-27 15:07] LABS: BODY FLUID PROTEIN 2.3 g/dL (())
--- NOTE | 2020-03-27 19:00 | NUR ---
VSS. INITIAL PLAN TO TRANSFER PT TO REHAB; UNABLE TO TX TODAY DUE TO INSURANCE. POSSIBLE TX TO REHAB EARLY NEXT WEEK. TF STARTED @ 30ML/HR AT 1100; TF RESIDUAL 5ML @ 1645, RATE INCREASED TO GOAL OF 45ML/HR AT THAT TIME. PT TOLERATING TF WELL, DENIED NAUSEA. PEG TUBE INSERTION SITE TENDER TO TOUCH AND PAINFUL WITH REPOSITIONING, PRN PAIN MEDS GIVEN ORDERED. AT BEDSIDE MUCH OF THE DAY, EDUCATION PROVIDED AND ALL QUESTIONS ANSWERED. CALL LIGHT WITHIN REACH.
[2020-03-28 05:03] VITALS: BP 132/55
--- NOTE | 2020-03-28 06:51 | NUR ---
PT SLEPT WELL OVERNIGHT, MOANS OCCASIONALLY, STATES DRY MOUTH OR BACK PAIN, MEDS GIVEN PRN INDICATED. R LIMB ALERT. CELESTE MIDLINE SL IV. PEG TUBE WITH JEVITY TF INFUSING AT 45ML HR, NO RESIDUAL THIS MORNING. WATER BOLUS GIVEN X2 OVERNIGHT ORDERED. MEDS CRUSHED AND PLACED IN PEG TUBE. PT TURNED AND REPOSITIONED Q2 HOURS AND PRN FOR SKIN CARE AND COMFORT. ALEJANDRA CDI TO COCCYX.
--- NOTE | 2020-03-28 07:20 | NUR ---
CHANGE OF SHIFT REPORT GIVEN PATIENT SEEN AT BEDSIDE, IN BED RESTING ASSUMED PATIENT CARE
[2020-03-28 08:00] VITALS: BP 148/58
[2020-03-28 08:03] LABS: BE 5.7 mmol/L (-2 to +3); PO2 112.7 mmHg (75.0-100.0)
[2020-03-28 08:34] LABS: ALBUMIN 2.1 g/dL (3.4-5.0); CALCIUM 8.1 mg/dL (8.5-10.1); CREATININE 0.7 mg/dL (0.6-1.3); POTASSIUM 4.3 mmol/L (3.5-5.1); TOTAL BILIRUBIN 0.4 mg/dL (<0.1-1.0); TOTAL PROTEIN 5.3 g/dL (6.4-8.2)
[2020-03-28 09:21] LABS: ABSOLUTE LYMPHOCYTES 1.3 thou/uL (0.8-5.3); ABSOLUTE MONOCYTES 0.9 thou/uL (0.0-1.2); ABSOLUTE NEUTROPHILS 6.4 thou/uL (1.6-8.1); BASOPHILS 0.3 %; HEMATOCRIT 28.2 % (37.0-47.0); HEMOGLOBIN 9.1 gm/dL (12.0-15.0); LYMPHOCYTES 15.4 %; MCH 29.3 pg (26.0-34.0); MCHC 32.2 g/dL (28.0-37.0); MCV 91.1 fL (80.0-100.0); MONOCYTES 10.1 %; MPV 8.1 fl. (7.2-11.1); NUCLEATED RBCS 0 /100WBC; POLYS 74.2 %; RBC 3.09 mil/uL (4.20-5.00); RDW-CV 15.9 % (10.5-14.5); WBC 8.6 thou/uL (4.0-11.0)
[2020-03-28 09:23] LABS: PLATELET COUNT* 348 thou/uL (150-400)
[2020-03-28 12:00] VITALS: BP 142/67
[2020-03-28 15:51] VITALS: BP 137/61
[2020-03-28 21:00] VITALS: BP 144/77
[2020-03-29 00:18] VITALS: BP 138/53
[2020-03-29 04:00] VITALS: BP 130/50
--- NOTE | 2020-03-29 05:40 | NUR ---
No acute event this shift. Pt sleep most of the night. Pt peg tube intact. Tube feeding infusing at 60ml/hr tolerated well, no residual. Pt awaken at 0500, pt moaning for pain. Pt given pain meds with relief. Reposition q2 maintained. Call light within reach, safety precaution in placed.
[2020-03-29 07:57] VITALS: BP 139/54
[2020-03-29 12:00] VITALS: BP 153/63
--- NOTE | 2020-03-29 17:03 | NUR ---
PRN PAIN MEDICATIONS GIVEN PER PT REQUEST. PT NOT ABLE TO VERBALIZE HER NEEDS AT TIMES. LIAN TO ROSALVA. PEG TUBE IN PLACE. PT ATE PART OF HER MEALS WITH ASSISTANCE. AT BEDSIDE.
[2020-03-29 21:00] VITALS: BP 157/62
[2020-03-30] VITALS: BP 131/57
[2020-03-30 04:00] VITALS: BP 114/51
--- NOTE | 2020-03-30 05:27 | NUR ---
No acute event this shift. Pt sleep most of the night. Reposition maintained. Tube feeding infusing at 60ml/hr. Assessment as charted, call light within reach, safety precaution in placed.
[2020-03-30 08:00] VITALS: BP 138/63
--- NOTE | 2020-03-30 14:40 | NUR ---
CM INFORMED DURING PRIME ROUNDING OF THE PLAN OF CARE FOR THE PT. PLAN FOR PT TO CONTINUE WORKING WITH PT/OT. INSURANCE AUTH PENDING FOR INPT ARU. CM WILL REMAIN AVAILABLE TO ASSIST AND FOLLOW NEEDED.
[2020-03-30 15:02] LABS: ABSOLUTE BASOPHILS 0.1 thou/uL (0.0-0.2); ABSOLUTE LYMPHOCYTES 2.1 thou/uL (0.8-5.3); ABSOLUTE NEUTROPHILS 12.5 thou/uL (1.6-8.1); BASOPHILS 0.5 %; EOSINOPHILS 0.2 %; HEMATOCRIT 35.7 % (37.0-47.0); LYMPHOCYTES 13.6 %; MCH 29.2 pg (26.0-34.0); MCHC 32.2 g/dL (28.0-37.0); MCV 90.9 fL (80.0-100.0); MONOCYTES 6.1 %; MPV 7.8 fl. (7.2-11.1); NUCLEATED RBCS 0 /100WBC; PLATELET COUNT* 308 thou/uL (150-400); POLYS 79.6 %; RBC 3.93 mil/uL (4.20-5.00); RDW-CV 16.6 % (10.5-14.5); WBC 15.7 thou/uL (4.0-11.0)
[2020-03-30 15:05] LABS: HEMOGLOBIN 11.5 gm/dL (12.0-15.0)
[2020-03-30 15:20] LABS: ALBUMIN 2.5 g/dL (3.4-5.0); CALCIUM 8.6 mg/dL (8.5-10.1); CREATININE 0.7 mg/dL (0.6-1.3); MAGNESIUM 1.9 mg/dL (1.8-2.4); POTASSIUM 4.7 mmol/L (3.5-5.1); TOTAL BILIRUBIN 0.5 mg/dL (<0.1-1.0); TOTAL PROTEIN 6.3 g/dL (6.4-8.2)
[2020-03-30 16:13] VITALS: BP 133/65
--- NOTE | 2020-03-30 16:18 | NUR ---
DISCUSSED WITH DR BRYAN ELEVATED WBC AND POSSIBLE TRANSFER TO REHAB. DR BRYAN STATES SHE IS OK WITH PT TRANSFERRING TO REHAB AND WILL CONTINUE TO FOLLOW HER ON REHAB. DISCUSSED WITH BRYAN BUSTILLOS ON REHAB
--- NOTE | 2020-03-30 18:07 | NUR ---
PT PARTICIPATES IN THERAPY. UP IN CHAIR DURING MEALS. PT REPORTS COCCYX PAIN. POOR APPETITE. ENCOURAGED PO INTAKE. AT BS AND UPDATED ON PLAN OF CARE. PLAN FOR REHAB IN AM WHEN BED AVAILABLE
[2020-03-30 20:00] VITALS: BP 133/55
[2020-03-31 00:37] VITALS: BP 121/48
--- NOTE | 2020-03-31 08:24 | NUR ---
ASSUMED PT CARE AT APPROX 1930. PT IS AWAKE AND ORIENTED TO SELF AND PLACE, PT IS ABLE TO ANSWER SIMPLE QUESTIONS. PT IS NOT IN DISTRESS, NO DESATURATIONS NOTED ON ROOM AIR. PAIN MEDICATION GIVEN FOR BACK PAIN WITH RELIEF. CONTINUOUS PEG TUBE FEEDING WELL TOLERATED. NO ACUTE CHANGES NOTED THROUGHOUT THIS SHIFT. CALL LIGHT WITHIN REACH. HOURLY ROUNDING DONE FOR PT SAFETY. HIGH FALL PRECAUTIONS IN PLACE.
[2020-03-31 09:22] VITALS: BP 123/55
[2020-03-31 09:29] VITALS: BP 123/55
--- NOTE | 2020-03-31 10:07 | PATH ---
[address] [address] PATHOLOGY RPT PROCEDURE Name: ELIZABETH GALLARDO Room: [address] IN [facility]#: [id number] Admission: 03/19/20 Date of : [birth year]/15/[birth year] Discharge: Report #: [id number] Path Case #: [id number] Note [facility] Accession Number: [id number] TESTS RESULT FLAG UNITS REF RANGE LAB Clinician Provided Cytology Information No. of containers..01 Other (Miscellaneous) Source: RIGHT PLEURAL FLUID DIAGNOSIS: 02 RIGHT PLEURAL FLUID NEGATIVE FOR MALIGNANT CELLS. REACTIVE MESOTHELIAL CELLS AND FEW, PREDOMINANTLY CHRONIC INFLAMMATORY CELLS. THIS INTERPRETATION INCLUDES EVALUATION OF A CELL BLOCK. Signed out by: 02 Florentin Valera MD, Pathologist NPI- [id number] Performed by: 01 Monica Parr, Keyboard Operator ([facility]) Gross description: 01 100ML, YELLOW, 1TP 1CB /LCS 03/27/2020 0912 Local FLAG LEGEND: L-Low Normal,H-High Normal,LL-Alert Low,HH-Alert High <-Panic Low,>-Panic High,A-Abnormal,AA-Critical Abnormal Performed at: [address] [place] [address] Gurmeet Kasper MD, [address] [place] [address] [address] [facility], [place] [address] Florentin Valera MD, Specimen Comment: A courtesy copy of this report has been sent to [phone], [phone] Specimen Comment: [id number] Specimen Comment: Report sent to ,DR TURNER,DR WHEELER Specimen Comment: DR MELO Specimen Comment: A duplicate report has been generated due to demographic updates. Performed at: [address], [place], [place] [id number] MD Gurmeet Kasper MD Phone: [phone]
[2020-03-31 12:48] LABS: HEMATOCRIT 28.7 % (37.0-47.0); HEMOGLOBIN 9.4 gm/dL (12.0-15.0); MCH 29.4 pg (26.0-34.0); MCHC 32.6 g/dL (28.0-37.0); MCV 90.3 fL (80.0-100.0); MPV 7.7 fl. (7.2-11.1); RBC 3.18 mil/uL (4.20-5.00); WBC 11.1 thou/uL (4.0-11.0)
[2020-03-31 12:48] LABS: URINE BILIRUBIN NEGATIVE (Negative); URINE BLOOD 1+ (Negative); URINE CLARITY CLEAR; URINE COLOR YELLOW; URINE GLUCOSE-RANDOM NEGATIVE (Negative); URINE KETONES NEGATIVE (Negative); URINE LEUKOCYTES-REFLEX TRACE (Negative); URINE NITRITE-REFLEX NEGATIVE (Negative); URINE PROTEIN TRACE (Negative)
[2020-03-31 12:51] LABS: CALCIUM 8.6 mg/dL (8.5-10.1); CREATININE 0.5 mg/dL (0.6-1.3); POTASSIUM 4.6 mmol/L (3.5-5.1)
[2020-03-31 13:06] LABS: SQUAMOUS NONE SEEN /LPF (0-3); URINE RBC 3-10 Few /HPF (0-2); URINE WBC-REFLEX 6-15 Few /HPF (0-5)
[2020-03-31 13:07] LABS: CASTS None Seen /LPF (None Seen); CRYSTALS None Seen /LPF (None Seen); MUCUS 0-3 Light strn/LPF (None Seen)
[2020-03-31 13:08] LABS: YEAST-REFLEX Present (None Seen)
--- NOTE | 2020-03-31 15:30 | NUR ---
PT RESTING.C/O PAIN TO BACK.PT REPOSITIONED AND COMFORT PROVIDED. VSS ON RA. PT TO TRANSFER TO REHAB. REPORT CALLED TO [facility] WHO ACCEPTED PT WITHOUT FURTHER QUESTIONS.WOUND DOCUMENTATION IN CHART.MIDLINE AND BEAL TO REMAIN IN PLACE.PEG TUBE CLAMPED AT THIS TIME. AT BEDSIDE.NOTHING FURTHER.
[2020-03-31] MEDS ORDERED: CEFDINIR300 MG PO (15:58)
== END 2020-03-31 16:06 | DRG 64 ==
LOC: M.ERS 05:26 → M.TBA-ER 07:13 → M.2W 07:13
PROVIDERS: Emergency Medicine; Family Medicine; Internal Medicine; Internal Medicine Critical Care Medicine; Internal Medicine Gastroenterology; Registered Nurse; ADMIT Internal Medicine; ATTEND Internal Medicine
PROC: 0W993ZZ Drainage of Right Pleural Cavity, Percutaneous Approach (ICD-10-PCS; principal; 2020-03-25)
PROC: 0DH63UZ Insertion of Feeding Device into Stomach, Percutaneous Approach (ICD-10-PCS; 2020-03-26)
DX: I63.511 Cerebral infarction due to unspecified occlusion or stenosis of right middle cerebral artery (principal); J69.0 Pneumonitis due to inhalation of food and vomit; E43 Unspecified severe protein-calorie malnutrition; J96.20 Acute and chronic respiratory failure, unspecified whether with hypoxia or hypercapnia; J98.59 Other diseases of mediastinum, not elsewhere classified; I50.43 Acute on chronic combined systolic (congestive) and diastolic (congestive) heart failure; I42.9 Cardiomyopathy, unspecified; E87.1 Hypo-osmolality and hyponatremia; Z68.1 Body mass index [BMI] 19.9 or less, adult; G93.40 Encephalopathy, unspecified; I48.92 Unspecified atrial flutter; E87.0 Hyperosmolality and hypernatremia; D68.69 Other thrombophilia; J91.8 Pleural effusion in other conditions classified elsewhere; D64.9 Anemia, unspecified; F03.90 Unspecified dementia, unspecified severity, without behavioral disturbance, psychotic disturbance, mood disturbance, and anxiety; E87.70 Fluid overload, unspecified; I25.10 Atherosclerotic heart disease of native coronary artery without angina pectoris; I49.5 Sick sinus syndrome; K22.9 Disease of esophagus, unspecified; R13.10 Dysphagia, unspecified; I48.91 Unspecified atrial fibrillation; Z20.822 Contact with and (suspected) exposure to COVID-19; Z86.16 Personal history of COVID-19; Z90.11 Acquired absence of right breast and nipple; Z79.82 Long term (current) use of aspirin; Z79.899 Other long term (current) drug therapy; Z79.01 Long term (current) use of anticoagulants; Z95.0 Presence of cardiac pacemaker

== ENCOUNTER 2020-03-30 14:43 | Inpatient (IN) | payer OTHER ==
[~2020-03-30] VITALS: Ht 157.5 cm; Wt 48.1 kg
[~2020-03-30 14:43] MED LIST: CHILDREN'S ASPI81 M1 PO; DORYX MPC120 MG PO; ELIQUIS5 MG PO; FLOMAX0.4 MG PO; LASIX 40 MG TAB40 MG PO; LIDOCAINE PAIN1 EACH TOP; LIPITOR40 MG PO; LISINOPRIL20 MG PO; MIRALAX119 GM PO; PACERONE 200 M200 M1 PO; SENNA PLUS TAB1 EACH PO; TOPROL XL25 MG PO; TRAMADOL 50 MG50 MG PO; TYLENOL325 M1 PO
[2020-03-31] MEDS ORDERED: CEFDINIR300 MG PO (15:58)
[2020-03-31 16:30] VITALS: BP 135/62
[2020-03-31 19:50] VITALS: BP 125/63
[2020-04-01 04:13] LABS: CALCIUM 8.1 mg/dL (8.5-10.1); CREATININE 0.6 mg/dL (0.6-1.3); HEMATOCRIT 27.9 % (37.0-47.0); HEMOGLOBIN 9.1 gm/dL (12.0-15.0); MCH 29.3 pg (26.0-34.0); MCHC 32.7 g/dL (28.0-37.0); MCV 89.8 fL (80.0-100.0); MPV 7.8 fl. (7.2-11.1); POTASSIUM 4.7 mmol/L (3.5-5.1); RBC 3.11 mil/uL (4.20-5.00); RDW-CV 16.9 % (10.5-14.5); WBC 10.3 thou/uL (4.0-11.0)
[2020-04-01 09:00] VITALS: BP 142/64
[2020-04-01 19:00] VITALS: BP 96/38
[2020-04-02 07:44] VITALS: BP 106/45
[2020-04-02 19:21] VITALS: BP 130/73
[2020-04-03 07:30] VITALS: BP 143/49
[2020-04-03 11:24] LABS: HEMATOCRIT 28.3 % (37.0-47.0); HEMOGLOBIN 9.3 gm/dL (12.0-15.0); MCHC 32.7 g/dL (28.0-37.0); MCV 91.5 fL (80.0-100.0); MPV 7.6 fl. (7.2-11.1); RBC 3.1 mil/uL (4.20-5.00); RDW-CV 17.5 % (10.5-14.5); WBC 10.5 thou/uL (4.0-11.0)
[2020-04-03 11:33] LABS: CALCIUM 8.9 mg/dL (8.5-10.1); CREATININE 0.6 mg/dL (0.6-1.3); POTASSIUM 4.2 mmol/L (3.5-5.1)
[2020-04-03 20:00] VITALS: BP 118/58
[2020-04-04 07:58] VITALS: BP 131/75
[2020-04-04 20:00] VITALS: BP 111/42
[2020-04-05 08:30] VITALS: BP 137/61
[2020-04-05 20:00] VITALS: BP 128/52
[2020-04-06 04:39] LABS: ABSOLUTE LYMPHOCYTES 1.8 thou/uL (0.8-5.3); ABSOLUTE MONOCYTES 0.8 thou/uL (0.0-1.2); ABSOLUTE NEUTROPHILS 5.8 thou/uL (1.6-8.1); BASOPHILS 0.5 %; EOSINOPHILS 0.3 %; HEMATOCRIT 27.1 % (37.0-47.0); HEMOGLOBIN 8.8 gm/dL (12.0-15.0); LYMPHOCYTES 21.4 %; MCH 29.6 pg (26.0-34.0); MCHC 32.6 g/dL (28.0-37.0); MCV 90.7 fL (80.0-100.0); MONOCYTES 9.5 %; MPV 7.5 fl. (7.2-11.1); NUCLEATED RBCS 0 /100WBC; PLATELET COUNT* 282 thou/uL (150-400); POLYS 68.3 %; RBC 2.99 mil/uL (4.20-5.00); RDW-CV 17.2 % (10.5-14.5); WBC 8.4 thou/uL (4.0-11.0)
[2020-04-06 05:01] LABS: ALBUMIN 2.2 g/dL (3.4-5.0); CALCIUM 8.5 mg/dL (8.5-10.1); CREATININE 0.7 mg/dL (0.6-1.3); POTASSIUM 3.9 mmol/L (3.5-5.1); TOTAL BILIRUBIN 0.4 mg/dL (<0.1-1.0); TOTAL PROTEIN 5.7 g/dL (6.4-8.2)
[2020-04-06 09:40] VITALS: BP 124/49
[2020-04-06 20:00] VITALS: BP 112/42
[2020-04-07 07:44] VITALS: BP 117/54
[2020-04-07 21:00] VITALS: BP 119/55
[2020-04-08 04:49] LABS: HEMATOCRIT 24.5 % (37.0-47.0); MCH 29.5 pg (26.0-34.0); MCHC 32.8 g/dL (28.0-37.0); MPV 7.3 fl. (7.2-11.1); RBC 2.72 mil/uL (4.20-5.00); WBC 8.4 thou/uL (4.0-11.0)
[2020-04-08 05:24] LABS: CALCIUM 8.5 mg/dL (8.5-10.1); CREATININE 0.9 mg/dL (0.6-1.3)
[2020-04-08 07:40] VITALS: BP 126/51
[2020-04-08 20:20] VITALS: BP 119/47
[2020-04-09 08:45] VITALS: BP 120/53
[2020-04-09 20:20] VITALS: BP 153/53
[2020-04-10 07:47] VITALS: BP 125/52
[2020-04-10 20:00] VITALS: BP 91/32
[2020-04-11 08:03] VITALS: BP 105/47
[2020-04-11 19:00] VITALS: BP 111/44
[2020-04-12 09:12] VITALS: BP 108/48
[2020-04-12 20:00] VITALS: BP 108/44
[2020-04-13 04:42] LABS: POTASSIUM 4.1 mmol/L (3.5-5.1)
[2020-04-13 04:43] LABS: HEMATOCRIT 25.6 % (37.0-47.0); HEMOGLOBIN 8.4 gm/dL (12.0-15.0); MCH 29.4 pg (26.0-34.0); MCHC 32.9 g/dL (28.0-37.0); MCV 89.3 fL (80.0-100.0); MPV 6.9 fl. (7.2-11.1); RBC 2.86 mil/uL (4.20-5.00); RDW-CV 16.7 % (10.5-14.5); WBC 5.6 thou/uL (4.0-11.0)
[2020-04-13 08:09] VITALS: BP 114/48
[2020-04-13 19:00] VITALS: BP 132/44
[2020-04-14 08:00] VITALS: BP 125/52
[2020-04-14 19:00] VITALS: BP 126/45
[2020-04-15 04:32] LABS: HEMATOCRIT 24.7 % (37.0-47.0); HEMOGLOBIN 8.1 gm/dL (12.0-15.0); MCH 29.3 pg (26.0-34.0); MCHC 32.8 g/dL (28.0-37.0); MCV 89.4 fL (80.0-100.0); MPV 6.9 fl. (7.2-11.1); RBC 2.76 mil/uL (4.20-5.00); RDW-CV 16.9 % (10.5-14.5); WBC 6.9 thou/uL (4.0-11.0)
[2020-04-15 04:41] LABS: CALCIUM 8.8 mg/dL (8.5-10.1); CREATININE 0.8 mg/dL (0.6-1.3)
[2020-04-15 07:43] VITALS: BP 131/60
[2020-04-15 19:00] VITALS: BP 130/59
[2020-04-16 20:13] VITALS: BP 141/54
[2020-04-17 07:48] VITALS: BP 101/41
[2020-04-17 11:00] VITALS: BP 96/36
[2020-04-17 11:08] VITALS: BP 107/47
[2020-04-17 20:10] VITALS: BP 111/44
[2020-04-18 08:01] VITALS: BP 136/71
[2020-04-18 20:00] VITALS: BP 136/52
[2020-04-19 07:47] VITALS: BP 110/63
[2020-04-19 20:00] VITALS: BP 127/50
[2020-04-20 08:13] VITALS: BP 120/48
[2020-04-20 09:38] LABS: ABSOLUTE LYMPHOCYTES 2.2 thou/uL (0.8-5.3); ABSOLUTE MONOCYTES 0.8 thou/uL (0.0-1.2); ABSOLUTE NEUTROPHILS 4.4 thou/uL (1.6-8.1); BASOPHILS 0.4 %; EOSINOPHILS 0.6 %; HEMATOCRIT 24.9 % (37.0-47.0); LYMPHOCYTES 29.5 %; MCH 29.1 pg (26.0-34.0); MCHC 32.3 g/dL (28.0-37.0); MCV 89.9 fL (80.0-100.0); MONOCYTES 10.2 %; NUCLEATED RBCS 0 /100WBC; PLATELET COUNT* 282 thou/uL (150-400); POLYS 59.3 %; RBC 2.76 mil/uL (4.20-5.00); RDW-CV 16.7 % (10.5-14.5); WBC 7.4 thou/uL (4.0-11.0)
[2020-04-20 10:18] LABS: URINE BILIRUBIN NEGATIVE (Negative); URINE BLOOD NEGATIVE (Negative); URINE CLARITY CLEAR; URINE COLOR YELLOW; URINE GLUCOSE-RANDOM NEGATIVE (Negative); URINE KETONES NEGATIVE (Negative); URINE LEUKOCYTES TRACE (Negative); URINE NITRITE NEGATIVE (Negative); URINE PROTEIN NEGATIVE (Negative); URINE SPECIFIC GRAVITY 1.015 (1.005-1.030)
[2020-04-20 10:30] LABS: BACTERIA 1-9 Few /HPF (None Seen); CASTS None Seen /LPF (None Seen); SQUAMOUS 0-3 Few /LPF (0-3); URINE RBC 0-2 Rare /HPF (0-2); URINE WBC 0-5 Rare /HPF (0-5)
[2020-04-20 10:31] LABS: CRYSTALS None Seen /LPF (None Seen)
[2020-04-20 19:00] VITALS: BP 86/30
[2020-04-21 07:45] VITALS: BP 121/62
[2020-04-21 19:00] VITALS: BP 109/36
[2020-04-22 04:50] LABS: HEMATOCRIT 22.4 % (37.0-47.0); HEMOGLOBIN 7.3 gm/dL (12.0-15.0); MCH 28.8 pg (26.0-34.0); MCHC 32.7 g/dL (28.0-37.0); MCV 88.3 fL (80.0-100.0); MPV 7.1 fl. (7.2-11.1); RBC 2.54 mil/uL (4.20-5.00); RDW-CV 16.8 % (10.5-14.5); WBC 6.7 thou/uL (4.0-11.0)
[2020-04-22 04:52] LABS: CALCIUM 8.4 mg/dL (8.5-10.1); CREATININE 1.1 mg/dL (0.6-1.3); POTASSIUM 4.3 mmol/L (3.5-5.1)
[2020-04-22 07:45] VITALS: BP 102/42
[2020-04-22 08:05] VITALS: BP 102/42
[2020-04-22 08:21] VITALS: BP 98/37
[2020-04-22 20:13] VITALS: BP 113/48
[2020-04-23 04:34] LABS: HEMOGLOBIN 7.1 gm/dL (12.0-15.0); MCH 28.8 pg (26.0-34.0); MCHC 32.4 g/dL (28.0-37.0); MCV 88.9 fL (80.0-100.0); MPV 7.1 fl. (7.2-11.1); RBC 2.47 mil/uL (4.20-5.00); RDW-CV 16.9 % (10.5-14.5); WBC 5.5 thou/uL (4.0-11.0)
[2020-04-23 04:52] LABS: ALBUMIN 2.2 g/dL (3.4-5.0); CALCIUM 8.4 mg/dL (8.5-10.1); CREATININE 1.1 mg/dL (0.6-1.3); MAGNESIUM 2.1 mg/dL (1.8-2.4); POTASSIUM 4.2 mmol/L (3.5-5.1); TOTAL BILIRUBIN 0.4 mg/dL (<0.1-1.0); TOTAL PROTEIN 5.2 g/dL (6.4-8.2)
[2020-04-23 08:28] VITALS: BP 124/43
[2020-04-23 20:18] VITALS: BP 123/42
[2020-04-24 08:00] VITALS: BP 100/40
[2020-04-24 20:16] VITALS: BP 128/45
[2020-04-24 21:15] VITALS: BP 128/45
[2020-04-25 05:26] LABS: HEMATOCRIT 21.8 % (37.0-47.0); HEMOGLOBIN 7.1 gm/dL (12.0-15.0); MCH 28.6 pg (26.0-34.0); MCHC 32.5 g/dL (28.0-37.0); MCV 88.1 fL (80.0-100.0); MPV 7.3 fl. (7.2-11.1); RBC 2.48 mil/uL (4.20-5.00); RDW-CV 17.1 % (10.5-14.5); WBC 6.4 thou/uL (4.0-11.0)
[2020-04-25 05:33] LABS: CALCIUM 8.4 mg/dL (8.5-10.1)
[2020-04-25 08:00] VITALS: BP 126/46
[2020-04-25 20:00] VITALS: BP 123/45
[2020-04-26 07:50] VITALS: BP 117/42
[2020-04-26 20:00] VITALS: BP 125/44
[2020-04-27 04:55] LABS: HEMATOCRIT 23.1 % (37.0-47.0); HEMOGLOBIN 7.5 gm/dL (12.0-15.0); MCH 28.8 pg (26.0-34.0); MCHC 32.4 g/dL (28.0-37.0); MPV 7.3 fl. (7.2-11.1); RBC 2.59 mil/uL (4.20-5.00); RDW-CV 17.3 % (10.5-14.5); WBC 7.2 thou/uL (4.0-11.0)
[2020-04-27 05:09] LABS: ALBUMIN 2.4 g/dL (3.4-5.0); CALCIUM 8.5 mg/dL (8.5-10.1); MAGNESIUM 2.1 mg/dL (1.8-2.4); POTASSIUM 5.5 mmol/L (3.5-5.1); TOTAL BILIRUBIN 0.3 mg/dL (<0.1-1.0); TOTAL PROTEIN 5.3 g/dL (6.4-8.2)
[2020-04-27 07:50] VITALS: BP 109/38
[2020-04-27 09:45] VITALS: BP 123/39
[2020-04-27 19:35] VITALS: BP 127/46
[2020-04-28 05:50] LABS: HEMATOCRIT 22.2 % (37.0-47.0); HEMOGLOBIN 7.2 gm/dL (12.0-15.0); MCH 28.7 pg (26.0-34.0); MCHC 32.3 g/dL (28.0-37.0); MPV 7.2 fl. (7.2-11.1); RBC 2.5 mil/uL (4.20-5.00); RDW-CV 17.4 % (10.5-14.5); WBC 7.3 thou/uL (4.0-11.0)
[2020-04-28 06:23] LABS: CALCIUM 8.4 mg/dL (8.5-10.1); CREATININE 0.9 mg/dL (0.6-1.3); MAGNESIUM 2.1 mg/dL (1.8-2.4); POTASSIUM 4.2 mmol/L (3.5-5.1)
[2020-04-28 07:33] VITALS: BP 131/43
[2020-04-28 10:49] LABS: % SATURATION 16 % (20-39); IRON 25 ug/dL (50-175)
[2020-04-28 19:00] VITALS: BP 124/41
[2020-04-29 05:15] LABS: HEMATOCRIT 23.5 % (37.0-47.0); HEMOGLOBIN 7.6 gm/dL (12.0-15.0); MCH 28.8 pg (26.0-34.0); MCHC 32.4 g/dL (28.0-37.0); MCV 88.7 fL (80.0-100.0); RBC 2.65 mil/uL (4.20-5.00); WBC 7.2 thou/uL (4.0-11.0)
[2020-04-29 05:28] LABS: CALCIUM 8.6 mg/dL (8.5-10.1); CREATININE 0.9 mg/dL (0.6-1.3); POTASSIUM 4.2 mmol/L (3.5-5.1)
[2020-04-29 08:00] VITALS: BP 127/51
[2020-04-29 19:00] VITALS: BP 129/38
[2020-04-30 08:02] VITALS: BP 127/45
[2020-04-30] MEDS ORDERED: LIDOCAINE PAIN1 EACH TOP (19:44)
[2020-04-30] MEDS ORDERED: FLOMAX0.4 MG PO (19:44)
[2020-04-30] MEDS ORDERED: PACERONE 200 M200 M1 PO (19:44)
[2020-04-30] MEDS ORDERED: LIPITOR40 MG PO (19:44)
[2020-04-30 20:00] VITALS: BP 137/42
[2020-05-01 07:39] VITALS: BP 157/59
[2020-05-01 09:57] VITALS: BP 157/59
== END 2020-05-01 17:26 | disposition home health service (06) | DRG 64 ==
LOC: M.REH 14:43
PROVIDERS: Family Medicine; Internal Medicine; Nurse Practitioner Family; ADMIT Physical Medicine & Rehabilitation; ATTEND Physical Medicine & Rehabilitation
DX: I61.1 Nontraumatic intracerebral hemorrhage in hemisphere, cortical (principal); G93.41 Metabolic encephalopathy; J96.20 Acute and chronic respiratory failure, unspecified whether with hypoxia or hypercapnia; J98.59 Other diseases of mediastinum, not elsewhere classified; E43 Unspecified severe protein-calorie malnutrition; I42.9 Cardiomyopathy, unspecified; N39.0 Urinary tract infection, site not specified; E87.1 Hypo-osmolality and hyponatremia; Z68.1 Body mass index [BMI] 19.9 or less, adult; Z16.21 Resistance to vancomycin; G93.40 Encephalopathy, unspecified; I50.9 Heart failure, unspecified; D64.9 Anemia, unspecified; I48.91 Unspecified atrial fibrillation; R53.81 Other malaise; F32.9 Major depressive disorder, single episode, unspecified; G31.84 Mild cognitive impairment of uncertain or unknown etiology; E04.9 Nontoxic goiter, unspecified; E87.5 Hyperkalemia; Z95.0 Presence of cardiac pacemaker; Z79.899 Other long term (current) drug therapy; Z93.1 Gastrostomy status; Z86.16 Personal history of COVID-19

== ENCOUNTER → 2020-07-17 | Outpatient (CLI) | payer OTHER ==
[~2020-07-17] MED LIST changes: +CEFDINIR300 MG PO
== END ==
LOC: M.RAD 10:00
PROVIDERS: ATTEND Nurse Practitioner Family
DX: R13.12 Dysphagia, oropharyngeal phase (principal); Z87.898 Personal history of other specified conditions; Z86.73 Personal history of transient ischemic attack (TIA), and cerebral infarction without residual deficits